=== PATIENT | female | born 1945 | race African-American/Black ===

== ENCOUNTER 2019-12-21 11:03 | Inpatient (IN) | payer MEDICARE, OTHER ==
[~2019-12-21] VITALS: Ht 162.6 cm; Wt 63.5 kg
[~2019-12-21 11:03] MED LIST: ALLOPURINOL100 M1 ORAL; APRESOLINE10 MG ORAL; ASPIRIN81 MG ORAL; BENAZEPRIL HCL10 MG ORAL; BYSTOLIC10 MG ORAL; FUROSEMIDE20 M1 ORAL; LIPITOR40 MG ORAL; LOTENSIN40 MG ORAL; NORVASC10 MG ORAL; PLAVIX75 MG ORAL
[2019-12-21 11:10] VITALS: BP 154/74
--- NOTE | 2019-12-21 11:10 | NUR ---
ED Nurse Note: Patient MANSI BARAJAS from [facility] c/o fever, cough and SOB. Per EMS, pt temp is 99.F with no improvement. Pt has mitchell prat drainage on RLQ. Temp at triage 98.2F. Not in any distress. VSS. Pt placed on child monitor.
--- NOTE | 2019-12-21 11:14 | Emergency Room Report ---
History of Present Illness General Chief Complaint: Dyspnea/Respdistress Source: Patient, EMS, PMD Present Illness HPI Disclaimer: Please note that this report is being documented using SploreON technology. This can lead to erroneous entry secondary to incorrect interpretation by the dictating instrument. HPI: 74-year-old female presents from SNF by EMS for evaluation of low-grade fever cough. Cough and low-grade fever reported. Denies shortness of breath. Denies vomiting, diarrhea, chest pain. Symptoms present about 1 day. Reports fatigue, chest congestion and mild sore throat. Denies any difficulty swallowing. Cases of novel coronavirus reported at her SNF. Sent in for admission by her PMD. PMH: Hypertension PSH: Reviewed Allergies: None reported Social Hx: Non-smoker Allergies: Coded Allergies: No Known Allergies (Unverified , 09/30/14) Nursing Documentation-PMH Hx Cardiac Problems: Yes Hx Hypertension: Yes Hx Cancer: No Hx Gastrointestinal Problems: No Hx Neurological Problems: Yes Hx Cerebrovascular Accident: Yes - 2012 Hx Syncope: Yes Review of Systems All Other Systems: negative except mentioned in HPI Physical Exam General: Awake and alert, appears fatigued but in no distress HEENT: NC/AT. EOMI. Cardiovascular: RRR. S1 and S2 normal. No murmur appreciated Resp: Normal work of breathing. Intermittent cough with coarse upper airway sounds bilaterally. No wheezing. Abdomen: Abdomen is soft, nondistended. Nontender Skin: Intact. No abrasions, laceration or rash over the exposed skin MSK: Normal tone and bulk. Moving all extremities. No obvious deformity. Neuro: Awake and alert. Mentating appropriately. Medical Decision Making Diagnostic Impression: Primary Impression: Suspected 2019 novel coronavirus infection Additional Impressions: Respiratory illness with fever UTI (urinary tract infection) ER Course This a 74-year-old female presenting for evaluation of fevers and cough of 1 day duration. Differential includes was not limited to viral syndrome, influenza, novel coronavirus, URI, pneumonia, bronchitis, empyema, effusion, CHF , ACS, GERD to name a few. Based on the patient's presenting signs, symptoms and physical exam findings, the patient has been screened and is suspected to have COVID-19. Will send influenza and novel coronavirus swabs. Cultures and broad labs ordered. Patient will require admission to isolation floor. Laboratory Tests Test 12/21/19 11:45 White Blood Count 16.4 K/UL (4.8-10.8) H Red Blood Count 4.06 M/UL (4.20-5.40) L Hemoglobin 12.6 G/DL (12.0-16.0) Hematocrit 36.9 % (37.0-47.0) L Mean Corpuscular Volume 91 FL (80-99) Mean Corpuscular Hemoglobin 31.0 PG (27.0-31.0) Mean Corpuscular Hemoglobin Concent 34.0 G/DL (32.0-36.0) Red Cell Distribution Width 12.6 % (11.6-14.8) Platelet Count 214 K/UL (150-450) Mean Platelet Volume 9.4 FL (6.5-10.1) Neutrophils (%) (Auto) 82.0 % (45.0-75.0) H Lymphocytes (%) (Auto) 5.7 % (20.0-45.0) L Monocytes (%) (Auto) 10.7 % (1.0-10.0) H Eosinophils (%) (Auto) 0.6 % (0.0-3.0) Basophils (%) (Auto) 1.0 % (0.0-2.0) Urine Color Yellow Urine Appearance Clear Urine pH 5 (4.5-8.0) Urine Specific Milo 1.020 (1.005-1.035) Urine Protein 2+ (NEGATIVE) H Urine Glucose (UA) Negative (NEGATIVE) Urine Ketones 3+ (NEGATIVE) H Urine Blood 2+ (NEGATIVE) H Urine Nitrite Negative (NEGATIVE) Urine Bilirubin Negative (NEGATIVE) Urine Urobilinogen Normal MG/DL (0.0-1.0) Urine Leukocyte Esterase 3+ (NEGATIVE) H Urine RBC 2-4 /HPF (0 - 2) H Urine WBC 15-20 /HPF (0 - 2) H Urine Squamous Epithelial Cells Few /LPF (NONE/OCC) Urine Bacteria Few /HPF (NONE) Sodium Level 138 MMOL/L (136-145) Potassium Level 4.2 MMOL/L (3.5-5.1) Chloride Level 103 MMOL/L (98-107) Carbon Dioxide Level 21 MMOL/L (21-32) Anion Gap 14 mmol/L (5-15) Blood Urea Nitrogen 10 mg/dL (7-18) Creatinine 0.5 MG/DL (0.55-1.30) L Estimated Glomerular Filtration Rate > 60 mL/min (>60) Glucose Level 78 MG/DL (74-106) Lactic Acid Level Pending Calcium Level 7.9 MG/DL (8.5-10.1) L Total Bilirubin 1.2 MG/DL (0.2-1.0) H Direct Bilirubin 0.3 MG/DL (0.0-0.3) Aspartate Amino Transferase (AST) 43 U/L (15-37) H Alanine Aminotransferase (ALT) 35 U/L (12-78) Alkaline Phosphatase 191 U/L (46-116) H Total Creatine Kinase 63 U/L (26-308) Creatine Kinase MB 3.2 NG/ML (0.0-3.6) Creatine Kinase MB Relative Index 5.0 Troponin I 0.010 ng/mL (0.000-0.056) Pro-B-Type Natriuretic Peptide 671 pg/mL (0-125) H Total Protein 5.0 G/DL (6.4-8.2) L Albumin 2.1 G/DL (3.4-5.0) L Globulin 2.9 g/dL Albumin/Globulin Ratio 0.7 (1.0-2.7) L Microbiology Date/Time Source Procedure Growth Status 12/21/19 11:45 Nasal Nares - Final Complete 12/21/19 11:45 Nasal Nares - Final Complete EKG Diagnostic Results EKG Time: 11:46 Rate: normal Rhythm: NSR ST Segments: no acute changes Other Impression Sinus rhythm, normal axis, irregular baseline makes it difficult to interpret, no obvious ischemic changes Rhythm Strip Diag. Results Rhythm Strip Time: 11:46 Rate: 70s Rhythm: NSR, no PVC's, no ectopy Chest X-Ray Diagnostic Results Chest X-Ray Diagnostic Results : Chest X-Ray Ordered: Yes # of Views/Limited/Complete: 1 View Indication: Shortness of Breath EP Interpretation: Yes Interpretation: no consolidation, no pneumothorax, other - Cannot visualize the left costovertebral angle. Possible effusion or rotational. Bilateral pulmonary congestion. No obvious infiltrate. Impression: Other - Bilateral pulmonary congestion lower lobes, possible left-sided effusion Electronically Signed by: Electronically signed by Dr. Paresh Lieberman Reevaluation Time: 12:51 Reevaluation Impression Chest x-ray shows bilateral pulmonary congestion but no obvious consolidation. Influenza swab negative. COVID-19 swab ordered. Patient will be kept in respiratory isolation during admission until swabs are returned. Urine may indicate an acute urinary tract infection. Will treat with ceftriaxone azithromycin to cover both urinary and respiratory pathogens. Will admit to her PMD, Dr. Shaffer Disposition: ADMITTED INPATIENT Condition: Serious Paresh Lieberman MD Dec 21, 2019 11:14
--- NOTE | 2019-12-21 11:15 | NUR ---
ED Nurse Note: Xray at bedside.
--- NOTE | 2019-12-21 11:20 | NUR ---
ED Nurse Note: IV line established. Blood specimen and covid swab collected and sent to lab.
[2019-12-21 12:27] LABS: EOSINOPHILS % (AUTO) 0.6 % (0.0-3.0); HEMATOCRIT 36.9 % (37.0-47.0); HEMOGLOBIN 12.6 G/DL (12.0-16.0); LYMPHOCYTES % (AUTO) 5.7 % (20.0-45.0); MEAN CORPUSCULAR VOLUME 91 FL (80-99); MONOCYTES % (AUTO) 10.7 % (1.0-10.0); PLATELET COUNT 214 K/UL (150-450); RED BLOOD COUNT 4.06 M/UL (4.20-5.40); RED CELL DISTRIBUTION WIDTH 12.6 % (11.6-14.8); WHITE BLOOD COUNT 16.4 K/UL (4.8-10.8)
--- NOTE | 2019-12-21 12:30 | NUR ---
ED Nurse Note: Urine specimen collected and sent to lab.
[2019-12-21 12:48] LABS: APPEARANCE,URINE CLEAR; BILIRUBIN, URINE NEGATIVE (NEGATIVE); GLUCOSE, URINE (UA) NEGATIVE (NEGATIVE); KETONES,URINE 3+ (NEGATIVE); LEUKOCYTE ESTERASE ,URINE 3+ (NEGATIVE); NITRITE,URINE NEGATIVE (NEGATIVE); PH,URINE 5 (4.5-8.0); PROTEIN,URINE 2+ (NEGATIVE); UROBILINOGEN,URINE NORMAL MG/DL (0.0-1.0)
[2019-12-21 12:50] LABS: ANION GAP 14 mmol/L (5-15); BLOOD UREA NITROGEN 10 mg/dL (7-18); CALCIUM 7.9 MG/DL (8.5-10.1); CARBON DIOXIDE 21 MMOL/L (21-32); CHLORIDE 103 MMOL/L (98-107); CREATININE 0.5 MG/DL (0.55-1.30); POTASSIUM 4.2 MMOL/L (3.5-5.1); SODIUM 138 MMOL/L (136-145)
[2019-12-21 13:02] LABS: ALANINE AMINOTRANSFERASE 35 U/L (12-78); ALBUMIN 2.1 G/DL (3.4-5.0); ALBUMIN/GLOBULIN RATIO 0.7 (1.0-2.7); ALKALINE PHOSPHATASE 191 U/L (46-116); ASPARTATE AMINO TRANSFERASE 43 U/L (15-37); BILIRUBIN,TOTAL 1.2 MG/DL (0.2-1.0); CKMB 3.2 NG/ML (0.0-3.6); CREATINE KINASE 63 U/L (26-308)
[2019-12-21] MEDS ORDERED: NORCO 5-325 TA1 EAC1 ORAL (13:02)
[2019-12-21] MEDS ORDERED: LISINOPRIL20 MG ORAL (13:02)
[2019-12-21] MEDS ORDERED: PANTOPRAZOLE SO40 MG ORAL (13:02)
[2019-12-21] MEDS ORDERED: DOCUSATE SODIU100 MG ORAL (13:02)
[2019-12-21 13:04] LABS: COLOR,URINE YELLOW
[2019-12-21 13:08] LABS: BILIRUBIN,DIRECT 0.3 MG/DL (0.0-0.3)
[2019-12-21] MEDS ORDERED: Azithromycin 500 MG in NS 275 ML IV ONE (13:15)
[2019-12-21] MEDS ORDERED: cefTRIAXone 1 GM in NS 55 ML IVPB ONE (13:15)
[2019-12-21 13:21] VITALS: BP 152/59
[2019-12-21 15:30] VITALS: BP 151/67
--- NOTE | 2019-12-21 15:30 | NUR ---
ED Nurse Note: Patient alert and oriented, verbally responsive. No SOB. Afebrile. Safety and comfort provided.
--- NOTE | 2019-12-21 16:08 | Diagnostic Imaging Report ---
Indication: Dyspnea Comparison: 09/30/2014 A single view chest radiograph was obtained. Findings: Pulmonary vascularity is mildly prominent as is the interstitium. There is a scoliosis of the thoracic spine with generalized osteopenia. There is a heavily calcified right breast implant and a partially ruptured calcified left breast implant. Cardiomegaly is again noted. IMPRESSION: No acute disease
[2019-12-21 17:30] VITALS: BP 145/72
[2019-12-21 19:30] VITALS: BP 161/59
--- NOTE | 2019-12-21 19:30 | Consultation ---
DATE OF CONSULTATION: 12/21/2019 INFECTIOUS DISEASES CONSULTATION CONSULTING PHYSICIAN: Darell Mckenna MD. PRIMARY ATTENDING PHYSICIAN: Tiff Shaffer MD. REASON FOR CONSULTATION: Upper respiratory infection with fever, rule out COVID 19, UTI. HISTORY OF PRESENT ILLNESS: This is a 74-year-old female admitted today from a nursing facility because of fever, fatigue, coughing for one day, and had mild sore throat. In the ER, she had leukocytosis of 16.4. Temperature per EMS was 99.7. PAST MEDICAL HISTORY: Significant for hypertension and CVA. ALLERGIES: No known drug allergy. MEDICATIONS: Got ceftriaxone and azithromycin in the ER. Got IV normal saline. SOCIAL HISTORY: assisted. . No other history was obtainable by the patient. The patient is sleeping. PHYSICAL EXAMINATION: VITAL SIGNS: Temperature 98.4, pulse 73, blood pressure 152/59. GENERAL APPEARANCE: Seems to have normal weight. No acute distress. HEAD AND NECK: Sikes conjunctivae. HEART: Normal rate. LUNGS: Clear. ABDOMEN: Soft and nontender. EXTREMITIES: She has no edema. LABORATORY AND DIAGNOSTIC DATA: WBC 16.4, hemoglobin 12.6, hematocrit 36.9. Sodium 138, potassium 5.2, chloride 103, bicarb 21, BUN 10, creatinine 0.5, glucose is 78, bilirubin 1.2, albumin is 2.1. UA showed wbc's of 15-20, leukocyte esterase 2+, blood 2+. Chest x-ray seems to have a lot of rotation. IMPRESSION: Acute respiratory illness. We will try to rule out COVID-19. Pyuria, may have UTI. History of hypertension and CVA. Leukocytosis. RECOMMENDATION: Continue with ceftriaxone. We will repeat chest x-ray in the morning. We will follow up the COVID-19 test. At the end of my exam, I thank Dr. Shaffer for involving me in the care of this patient. Darell Mckenna M.D. DR: Vladimir JOB#: [id number] CC: [id number]
--- NOTE | 2019-12-21 19:54 | NUR ---
ED Nurse Note: Patient seen sleeping in bed. Breathing even and unlabored. Safety and comfort provided.
--- NOTE | 2019-12-21 20:53 | NUR ---
ED Nurse Note: REPORT GIVEN TO DIANE ABREU
[2019-12-21 20:54] VITALS: BP 146/57
--- NOTE | 2019-12-21 21:00 | NUR ---
TRANSFER TO FLOOR: Patient transferred to Tele. Report given to Azra CONTRERAS. Pt alert and orientedx4, verbally responsive. No SOB. No acute distress. Afebrile. Sinus rhythm. IV line on left AC 20g patent and intact. Swabs are sent. Med recon done. All belongings sent with the patient.
--- NOTE | 2019-12-21 21:55 | NUR ---
NURSE NOTES: Patient received from DIANE Reed. Patient is awake, alert, and responsive. AOx4. skin intact with 3 abdominal sutures, CYRUS drain on RLQ. IV intact and flushed. No sign of erythema, bleeding, or infiltration. Patient in room air and semi-rivas's position. Bed in lowest position, brakes engaged. Call light placed within reach. Oriented to hospital protocol. Called and left a message for Dr. Shaffer for admission orders. Will continue to monitor.
--- NOTE | 2019-12-21 22:55 | NUR ---
NURSE NOTES: Called and spoke to charge nurse from [facility] clarifying patient's abdominal surgery. Nurse was unable to verify what procedure was done. Information reported to Dr. Shaffer.
[2019-12-21] MEDS ORDERED: NORVASC5 MG ORAL (23:13)
[2019-12-21] MEDS ORDERED: ZOFRAN4 M1 ORAL (23:13)
[2019-12-21] MEDS ORDERED: HYDROcodone/Acetamin 5/325 tab ORAL PRN (23:15)
--- NOTE | 2019-12-21 23:26 | NUR ---
NURSE NOTES: Called and left a message with Dr. Shaffer regarding patient's SBP at 160s. MD ordered clonidine 0.1mg po Q6H PRN for sbp > 180. Will continue to monitor.
[2019-12-22 01:18] VITALS: BP 171/77
[2019-12-22 04:00] VITALS: BP 158/75
[2019-12-22] MEDS: NovoLOG Insulin Flexpen SUBQ SCH ×4 (06:30→21:00)
--- NOTE | 2019-12-22 07:24 | NUR ---
HAND-OFF: Report given to DIANE Ahn. Patient stable. Plan of care endorsed.
--- NOTE | 2019-12-22 07:39 | NUR ---
NURSE NOTES: Received report from DIANE Petty. Observed pt sleeping, breathing even and unlabored in RA. No s/sx of pain or acute distress. Bed on lowest position, call light within reach. Will continue plan of care.
[2019-12-22 08:00] VITALS: BP 156/74
[2019-12-22] MEDS: Lisinopril 20mg tab ORAL SCH (09:23)
[2019-12-22] MEDS: Docusate 100mg cap ORAL SCH (09:23)
[2019-12-22 11:15] LABS: BASOPHILS % (AUTO) 1.2 % (0.0-2.0); EOSINOPHILS % (AUTO) 1.5 % (0.0-3.0); HEMATOCRIT 37.7 % (37.0-47.0); HEMOGLOBIN 12.7 G/DL (12.0-16.0); LYMPHOCYTES % (AUTO) 10.2 % (20.0-45.0); MEAN CORPUSCULAR VOLUME 91 FL (80-99); NEUTROPHILS % (AUTO) 76.2 % (45.0-75.0); PLATELET COUNT 215 K/UL (150-450); RED BLOOD COUNT 4.15 M/UL (4.20-5.40); RED CELL DISTRIBUTION WIDTH 12.7 % (11.6-14.8); WHITE BLOOD COUNT 11.8 K/UL (4.8-10.8)
[2019-12-22 11:47] LABS: ALANINE AMINOTRANSFERASE 27 U/L (12-78); ALBUMIN 1.8 G/DL (3.4-5.0); ALBUMIN/GLOBULIN RATIO 0.5 (1.0-2.7); ALKALINE PHOSPHATASE 168 U/L (46-116); ANION GAP 11 mmol/L (5-15); ASPARTATE AMINO TRANSFERASE 34 U/L (15-37); BILIRUBIN,TOTAL 0.6 MG/DL (0.2-1.0); BLOOD UREA NITROGEN 10 mg/dL (7-18); CALCIUM 8.2 MG/DL (8.5-10.1); CARBON DIOXIDE 20 MMOL/L (21-32); CHLORIDE 102 MMOL/L (98-107); CREATININE 0.4 MG/DL (0.55-1.30); POTASSIUM 3.9 MMOL/L (3.5-5.1); SODIUM 133 MMOL/L (136-145)
[2019-12-22 12:00] VITALS: BP 143/64
[2019-12-22] MEDS ORDERED: cefTRIAXone 1 GM in D5W 55 ML IVPB SCH (12:00)
--- NOTE | 2019-12-22 12:30 | Consultation ---
DATE OF CONSULTATION: 12/22/2019 PULMONARY CONSULTATION CONSULTING PHYSICIAN: Rodger Weems M.D. HISTORY OF PRESENT ILLNESS: This is a 74-year-old female, who [facility] with fever, fatigue and cough. She also had complaints of a sore throat, low-grade fever. She has mild leukocytosis. X-ray of the chest showed clear pulmonary parenchyma. She received antibiotics in the ER, is currently in the hospital with rule out COVID-19 protocol. PAST HISTORY: [facility] resident, hypertension, previous CVA. SOCIAL HISTORY: [facility] resident. No history of alcohol or tobacco usage. MEDICATIONS: Home medications reviewed and reconciled in the chart. Current medications include azithromycin, Rocephin, IV fluids, Norvasc, Bolton, and Prinivil. ALLERGIES: None reported. PHYSICAL EXAMINATION: VITAL SIGNS: Blood pressure is 150/70, heart rate 74, respirations ____, afebrile. GENERAL: Reveals an elderly female. HEENT: Unremarkable. CHEST: Shows decreased breath sounds bilaterally with normal heart sounds. ABDOMEN: Soft. EXTREMITIES: There is no edema. LABORATORY DATA: Sodium 133, hemoglobin 11.8. IMPRESSION: 1. Rule out COVID-19. 2. [facility] resident. 3. Hypertension. 4. CVA. DISCUSSION: Admit to the hospital. Agree with antibiotics. We will follow as pulmonary taxation consultant. We will follow carefully. Rodger Weems M.D. DR: CALIN JOB#: [id number] CC:
[2019-12-22] MEDS ORDERED: Tubing IV Secondary IV ONE (12:37)
--- NOTE | 2019-12-22 15:02 | NUR ---
NURSE NOTES: Reported NA 133, WBC 11.8, and Albumin 1.[address] Shaffer. Addendum: 12/22/19 at 1514 by Anabelle Bunch RN MD ordered dietitian consult for low albumin.
[2019-12-22 16:00] VITALS: BP 156/73
--- NOTE | 2019-12-22 17:05 | NUR ---
NURSE NOTES: Pt requested to removed SCDs and stated to put it back later. Will endorse to night nurse.
--- NOTE | 2019-12-22 19:39 | NUR ---
HAND-OFF: Report given to DIANE Mcdonnell. Pt in stable condition, endorsed plan of care.
--- NOTE | 2019-12-22 19:40 | NUR ---
NURSE NOTES: Got report from Anabelle CONTRERAS. Pt in stable condition. Denies any pain. No s/s of distress or discomfort noted. Pt resting in bed comfortably. Bed in low andl locked position, call light within reach, bedside table within reach. Continue to monitor.
[2019-12-22 20:00] VITALS: BP 160/69
--- NOTE | 2019-12-22 23:00 | NUR ---
NURSE NOTES: Pt had 20 beats wide QRS Tachycardia which appears to be VTach. Pt in stable condition. VSS. Pt denies any distress or discomfort. No distress noted. Dr. Laboy notified.
--- NOTE | 2019-12-22 23:00 | History and Physical Report ---
DATE OF ADMISSION: 12/21/2019 HISTORY OF PRESENT ILLNESS: The patient comes in with respiratory symptoms, cough, shortness of breath, and low-grade fever from the [facility], with elevated WBC. COVID swab was sent and azithromycin was given. The patient denies nausea, vomiting, or diarrhea. Symptoms going on for about 2 weeks. The patient also reports weakness, chest congestion, and sore throat. The patient has been admitted to rule out pneumonia and rule out COVID-19 as well. The patient is also being treated for being admitted for UTI as well. PAST MEDICAL HISTORY: Hypertension, history of syncope, history of CVA. The patient also has history of GERD. Hyperlipidemia and CAD. PAST SURGICAL HISTORY: Status post laparotomy in the past. SOCIAL HISTORY: No history of alcohol or drug abuse. Comes from a [facility]. FAMILY HISTORY: Noncontributory. ALLERGIES: No known allergies. MEDICATIONS: Lipitor, benazepril, Plavix, Colace, hydralazine, lisinopril, and Protonix. REVIEW OF SYSTEMS: HEENT: Denies headache. RESPIRATORY: He does have mild shortness of breath. Mild cough. Denies wheezing. CARDIOVASCULAR: Denies chest pain. No orthopnea. GASTROINTESTINAL: Denies nausea, vomiting, or diarrhea. EXTREMITIES: Denies pain in the lower extremities. Denies change in speech pattern. PHYSICAL EXAMINATION: VITAL SIGNS: Temperature 97.9, pulse 71, blood pressure 142/64. HEENT: PERRLA. NECK: Supple. No lymphadenopathy. CHEST: Clear to auscultation. CARDIOVASCULAR: Regular rate and rhythm. No murmurs or extra sounds. GASTROINTESTINAL: Soft, nontender, nondistended. No organomegaly. EXTREMITIES: No edema. Reflexes are on both sides. Moves all the extremities. LABORATORY AND DIAGNOSTIC DATA: Laboratory-lowe, WBC of 16.4, hemoglobin 12.6, platelets of 214,000. Sodium 138, potassium of 4.2, chloride of 103, BUN of 10, creatinine of 0.5, glucose of 78, AST of 43, ALT of 35. Troponin 0.01. ASSESSMENT AND PLAN: Respiratory insufficiency, pneumonia, rule out COVID-19, leukocytosis, and history of CAD. I have consulted Dr. Rodger Parker and Dr. Darell Mckenna for the management of the pneumonia. Antibiotics per Dr. Darell Mckenna. Tiff Shaffer M.D. DR: Chris JOB#: [id number] CC:
[2019-12-23] VITALS: BP 155/75
[2019-12-23 04:00] VITALS: BP 156/77
[2019-12-23] MEDS: NovoLOG Insulin Flexpen SUBQ SCH ×4 (06:30→21:00)
--- NOTE | 2019-12-23 07:26 | NUR ---
HAND-OFF: Report given to Tristan CONTRERAS.
--- NOTE | 2019-12-23 07:27 | NUR ---
NURSE NOTES: Received report from DIANE Dowell. Patient in bed resting, no active s/s cardiac, respiratory distress noticed at this time. Patient AOx4, on room air, denies pain at this time. Endorsed patient had 20 Beats of wide QRS MD Domenico made aware. IV on left AC 20G, asymptomatic, patent, intact. Bed in lowest position, side rails upx2, call light within reach, bed alarm on. Will continue to monitor.
[2019-12-23 08:00] VITALS: BP 150/73
[2019-12-23] MEDS: Docusate 100mg cap ORAL SCH (08:33)
[2019-12-23] MEDS: Lisinopril 20mg tab ORAL SCH (08:46)
[2019-12-23 09:31] LABS: ALANINE AMINOTRANSFERASE 29 U/L (12-78); ALBUMIN 1.9 G/DL (3.4-5.0); ALBUMIN/GLOBULIN RATIO 0.7 (1.0-2.7); ALKALINE PHOSPHATASE 166 U/L (46-116); ANION GAP 11 mmol/L (5-15); ASPARTATE AMINO TRANSFERASE 30 U/L (15-37); BILIRUBIN,TOTAL 0.5 MG/DL (0.2-1.0); BLOOD UREA NITROGEN 9 mg/dL (7-18); CARBON DIOXIDE 24 MMOL/L (21-32); CHLORIDE 102 MMOL/L (98-107); CREATININE 0.3 MG/DL (0.55-1.30); POTASSIUM 4.2 MMOL/L (3.5-5.1); SODIUM 136 MMOL/L (136-145)
[2019-12-23] MEDS: Cefepime HCl 1 GM in D5W 55 ML IVPB SCH (11:24)
--- NOTE | 2019-12-23 11:38 | Pulmonology Progress Note ---
Assessment/Plan Assessment/Plan IMPRESSION: 1. Rule out COVID-19. 2. long term resident. 3. Hypertension. 4. CVA. 5. Citrobacter UTI DISCUSSION: Admit to the hospital. Agree with antibiotics. I will follow as pulmonary independent crop consultant. Continue to monitor saturations; currently on RA. Rodger Weems M.D. Subjective Interval Events: Urine CS positive for citrobacter Constitutional: Reports: no symptoms HEENT: Repors: no symptoms Respiratory: Reports: no symptoms Cardiovascular: Reports: no symptoms Gastrointestinal/Abdominal: Reports: no symptoms Allergies: Coded Allergies: No Known Allergies (Unverified , 09/30/14) Objective Last 24 Hour Vital Signs Date Time Temp Pulse Resp B/P (MAP) Pulse Ox O2 Delivery O2 Flow Rate FiO2 12/23/19 09:00 Room Air 12/23/19 08:46 150/75 12/23/19 08:46 73 150/75 12/23/19 08:00 72 12/23/19 08:00 98.3 75 18 150/73 (98) 95 12/23/19 04:00 97.5 70 20 156/77 (103) 96 12/23/19 04:00 70 12/23/19 00:00 97.9 75 20 155/75 (101) 95 12/23/19 00:00 73 12/22/19 21:00 Room Air 12/22/19 20:00 98.2 80 20 160/69 (99) 95 12/22/19 20:00 79 12/22/19 17:51 80 156/73 12/22/19 16:00 68 12/22/19 16:00 98.1 80 20 156/73 (100) 94 12/22/19 12:00 97.9 71 20 143/64 (90) 100 12/22/19 11:39 73 Intake and Output 12/22/19 12/23/19 19:00 07:00 Output Total 700 ml Balance -700 ml Output Urine Total 600 ml Drainage Total 100 ml General Appearance: no acute distress HEENT: normocephalic Respiratory/Chest: chest wall non-tender Cardiovascular: normal peripheral pulses Abdomen: normal bowel sounds Microbiology Date/Time Source Procedure Growth Status 12/21/19 12:00 Blood Blood Culture - Preliminary NO GROWTH AFTER 24 HOURS Resulted 12/21/19 11:45 Blood Blood Culture - Preliminary NO GROWTH AFTER 24 HOURS Resulted 12/21/19 11:45 Nasal Nares - Final Complete 12/21/19 11:45 Nasal Nares - Final Complete 12/21/19 11:45 Urine,Clean Catch Urine Culture - Final Citrobacter Freundii Complete Laboratory Tests 12/23/19 05:45: Sodium Level 136, Potassium Level 4.2, Chloride Level 102, Carbon Dioxide Level 24, Anion Gap 11, Blood Urea Nitrogen 9, Creatinine 0.3L, Estimat Glomerular Filtration Rate > 60, Glucose Level 77, Calcium Level 8.0L, Magnesium Level 1.6L , Total Bilirubin 0.5, Aspartate Amino Transf (AST/SGOT) 30, Alanine Aminotransferase (ALT/SGPT) 29, Alkaline Phosphatase 166H, Troponin I 0.000, Total Protein 4.6L, Albumin 1.9L, Globulin 2.7, Albumin/Globulin Ratio 0.7L Current Medications Medications (Trade) Dose Ordered Sig/Lynette Route PRN Reason Start Time Stop Time Status Last Admin Dose Admin Acetaminophen/ Hydrocodone Bitart (Etna 5/325) 1 tab Q4H PRN ORAL For Pain 12/21/19 23:15 12/28/19 23:14 Amlodipine Besylate (Norvasc) 5 mg BID ORAL 12/22/19 09:00 01/21/20 08:59 12/23/19 08:46 Cefepime HCl 1 gm/ Dextrose 55 ml @ 110 mls/hr Q24H IVPB 12/23/19 11:00 12/30/19 10:59 12/23/19 11:24 Clonidine HCl (Catapres Tab) 0.1 mg Q6H PRN ORAL For High Blood Pressure 12/22/19 00:45 03/21/20 00:44 12/22/19 01:19 Dextrose (Dextrose 50%) 25 ml Q30M PRN IV Hypoglycemia 12/22/19 06:00 03/21/20 05:59 Dextrose (Dextrose 50%) 50 ml Q30M PRN IV Hypoglycemia 12/22/19 06:00 03/21/20 05:59 Docusate Sodium (Colace) 200 mg DAILY ORAL 12/22/19 09:00 01/21/20 08:59 12/23/19 08:33 Insulin Aspart (NovoLOG) BEFORE MEALS AND HS SUBQ 12/22/19 06:30 03/21/20 06:29 Lisinopril (PriniviL) 20 mg DAILY ORAL 12/22/19 09:00 01/21/20 08:59 12/23/19 08:46 Ondansetron HCl (Zofran) 4 mg Q4H PRN ORAL Nausea & Vomiting 12/21/19 23:15 01/20/20 23:14 Rodger Weems MD Dec 23, 2019 11:38
--- NOTE | 2019-12-23 11:56 | NUR ---
RD ASSESSMENT & RECOMMENDATIONS SEE CARE ACTIVITY FOR COMPLETE ASSESSMENT DAILY ESTIMATED NEEDS: Needs based on cardiac, pulmonary 56.8abw 25-30 kcals/kg 6239-0286 total kcals 1-1.5 g protein/kg 57-85 g total protein 25-30 mL/kg 3335-1742 total fluid mLs NUTRITION DIAGNOSIS: Altered nutrition related lab values r/t clinical status as evidenced by low Mg, elev LFT's, elev BP. CURRENT DIET: CCHO MED PO DIET RECOMMENDATIONS: Rec CCHO LOW + Low NA diet/ texture as tolerated ADDITIONAL RECOMMENDATIONS: 1) add Glucerna 1 tetra BID 2) Rec A1C for eval 3) Obtain a calibrated bed scale wt for accurate CBW 4) High pro snacks in b/w meals Please record accurate PO intake of meals
[2019-12-23 12:00] VITALS: BP 148/70
--- NOTE | 2019-12-23 14:00 | NUR ---
NURSE NOTES: Dr. Laboy made aware of Mg level 1.6 today, no new order at this time. Will continue to monitor.
--- NOTE | 2019-12-23 15:23 | Infectious Diseases Prog Note ---
Assessment/Plan Assessment/Plan IMPRESSION: Acute respiratory illness, rule out COVID-19. Citrobacter UTI. Hypertension History of CVA. Leukocytosis improving RECOMMENDATION: Continue with cefepime We will follow up the COVID-19 test. Subjective ROS Limited/Unobtainable: No Constitutional: Reports: no symptoms Respiratory: Reports: no symptoms Gastrointestinal/Abdominal: Reports: no symptoms Genitourinary: Reports: no symptoms Allergies: Coded Allergies: No Known Allergies (Unverified , 09/30/14) Objective Vital Signs Last 24 Hour Vital Signs Date Time Temp Pulse Resp B/P (MAP) Pulse Ox O2 Delivery O2 Flow Rate FiO2 12/23/19 12:00 75 12/23/19 12:00 97.8 75 18 148/70 (96) 95 12/23/19 09:00 Room Air 12/23/19 08:46 150/75 12/23/19 08:46 73 150/75 12/23/19 08:00 72 12/23/19 08:00 98.3 75 18 150/73 (98) 95 12/23/19 04:00 97.5 70 20 156/77 (103) 96 12/23/19 04:00 70 12/23/19 00:00 97.9 75 20 155/75 (101) 95 12/23/19 00:00 73 12/22/19 21:00 Room Air 12/22/19 20:00 98.2 80 20 160/69 (99) 95 12/22/19 20:00 79 12/22/19 17:51 80 156/73 12/22/19 16:00 68 12/22/19 16:00 98.1 80 20 156/73 (100) 94 Height (Feet): 5 Height (Inches): 4.00 Weight (Pounds): 140 General Appearance: no acute distress HEENT: mucous membranes moist Respiratory/Chest: lungs clear Cardiovascular: normal rate Abdomen: soft, non tender Extremities: no edema Neurologic/Psychiatric: alert, oriented x 3, responsive Microbiology Date/Time Source Procedure Growth Status 12/21/19 12:00 Blood Blood Culture - Preliminary NO GROWTH AFTER 24 HOURS Resulted 12/21/19 11:45 Blood Blood Culture - Preliminary NO GROWTH AFTER 24 HOURS Resulted 12/21/19 11:45 Nasal Nares - Final Complete 12/21/19 11:45 Nasal Nares - Final Complete 12/21/19 11:45 Urine,Clean Catch Urine Culture - Final Citrobacter Freundii Complete Laboratory Tests Test 12/23/19 05:45 Sodium Level 136 MMOL/L (136-145) Potassium Level 4.2 MMOL/L (3.5-5.1) Chloride Level 102 MMOL/L (98-107) Carbon Dioxide Level 24 MMOL/L (21-32) Anion Gap 11 mmol/L (5-15) Blood Urea Nitrogen 9 mg/dL (7-18) Creatinine 0.3 MG/DL (0.55-1.30) L Estimat Glomerular Filtration Rate > 60 mL/min (>60) Glucose Level 77 MG/DL (74-106) Calcium Level 8.0 MG/DL (8.5-10.1) L Magnesium Level 1.6 MG/DL (1.8-2.4) L Total Bilirubin 0.5 MG/DL (0.2-1.0) Aspartate Amino Transf (AST/SGOT) 30 U/L (15-37) Alanine Aminotransferase (ALT/SGPT) 29 U/L (12-78) Alkaline Phosphatase 166 U/L (46-116) H Troponin I 0.000 ng/mL (0.000-0.056) Total Protein 4.6 G/DL (6.4-8.2) L Albumin 1.9 G/DL (3.4-5.0) L Globulin 2.7 g/dL Albumin/Globulin Ratio 0.7 (1.0-2.7) L Current Medications Medications (Trade) Dose Ordered Sig/Lynette Route PRN Reason Start Time Stop Time Status Last Admin Dose Admin Acetaminophen/ Hydrocodone Bitart ([place] 5/325) 1 tab Q4H PRN ORAL For Pain 12/21/19 23:15 12/28/19 23:14 Amlodipine Besylate (Norvasc) 5 mg BID ORAL 12/22/19 09:00 01/21/20 08:59 12/23/19 08:46 Cefepime HCl 1 gm/ Dextrose 55 ml @ 110 mls/hr Q24H IVPB 12/23/19 11:00 12/30/19 10:59 12/23/19 11:24 Clonidine HCl (Catapres Tab) 0.1 mg Q6H PRN ORAL For High Blood Pressure 12/22/19 00:45 03/21/20 00:44 12/22/19 01:19 Dextrose (Dextrose 50%) 25 ml Q30M PRN IV Hypoglycemia 12/22/19 06:00 03/21/20 05:59 Dextrose (Dextrose 50%) 50 ml Q30M PRN IV Hypoglycemia 12/22/19 06:00 03/21/20 05:59 Docusate Sodium (Colace) 200 mg DAILY ORAL 12/22/19 09:00 01/21/20 08:59 12/23/19 08:33 Insulin Aspart (NovoLOG) BEFORE MEALS AND HS SUBQ 12/22/19 06:30 03/21/20 06:29 Lisinopril (PriniviL) 20 mg DAILY ORAL 12/22/19 09:00 01/21/20 08:59 12/23/19 08:46 Ondansetron HCl (Zofran) 4 mg Q4H PRN ORAL Nausea & Vomiting 12/21/19 23:15 01/20/20 23:14 Darell Mckenna MD Dec 23, 2019 15:23
[2019-12-23 16:00] VITALS: BP 159/68
--- NOTE | 2019-12-23 16:40 | Cardiac Electrophysiology PN ---
Subjective Subjective [id number] Objective Last 24 Hour Vital Signs Date Time Temp Pulse Resp B/P (MAP) Pulse Ox O2 Delivery O2 Flow Rate FiO2 12/23/19 16:00 98.8 79 18 159/68 (98) 94 12/23/19 16:00 73 12/23/19 12:00 75 12/23/19 12:00 97.8 75 18 148/70 (96) 95 12/23/19 09:00 Room Air 12/23/19 08:46 150/75 12/23/19 08:46 73 150/75 12/23/19 08:00 72 12/23/19 08:00 98.3 75 18 150/73 (98) 95 12/23/19 04:00 97.5 70 20 156/77 (103) 96 12/23/19 04:00 70 12/23/19 00:00 97.9 75 20 155/75 (101) 95 12/23/19 00:00 73 12/22/19 21:00 Room Air 12/22/19 20:00 98.2 80 20 160/69 (99) 95 12/22/19 20:00 79 12/22/19 17:51 80 156/73 Intake and Output 12/22/19 12/23/19 19:00 07:00 Output Total 700 ml Balance -700 ml Output Urine Total 600 ml Drainage Total 100 ml Laboratory Tests Test 12/23/19 05:45 Sodium Level 136 MMOL/L (136-145) Potassium Level 4.2 MMOL/L (3.5-5.1) Chloride Level 102 MMOL/L (98-107) Carbon Dioxide Level 24 MMOL/L (21-32) Anion Gap 11 mmol/L (5-15) Blood Urea Nitrogen 9 mg/dL (7-18) Creatinine 0.3 MG/DL (0.55-1.30) L Estimat Glomerular Filtration Rate > 60 mL/min (>60) Glucose Level 77 MG/DL (74-106) Calcium Level 8.0 MG/DL (8.5-10.1) L Magnesium Level 1.6 MG/DL (1.8-2.4) L Total Bilirubin 0.5 MG/DL (0.2-1.0) Aspartate Amino Transf (AST/SGOT) 30 U/L (15-37) Alanine Aminotransferase (ALT/SGPT) 29 U/L (12-78) Alkaline Phosphatase 166 U/L (46-116) H Troponin I 0.000 ng/mL (0.000-0.056) Total Protein 4.6 G/DL (6.4-8.2) L Albumin 1.9 G/DL (3.4-5.0) L Globulin 2.7 g/dL Albumin/Globulin Ratio 0.7 (1.0-2.7) L Microbiology Date/Time Source Procedure Growth Status 12/21/19 12:00 Blood Blood Culture - Preliminary NO GROWTH AFTER 24 HOURS Resulted 12/21/19 11:45 Blood Blood Culture - Preliminary NO GROWTH AFTER 24 HOURS Resulted 12/21/19 11:45 Nasal Nares - Final Complete 12/21/19 11:45 Nasal Nares - Final Complete 12/21/19 11:45 Urine,Clean Catch Urine Culture - Final Citrobacter Freundii Complete Vance Laboy MD Dec 23, 2019 16:40
[2019-12-23] MEDS: Magnesium Oxide 400mg tab ORAL SCH (17:42)
--- NOTE | 2019-12-23 19:38 | NUR ---
HAND-OFF: Report given to DIANE Caldwell. Endorsed plan of care.
--- NOTE | 2019-12-23 19:40 | NUR ---
NURSE NOTES: Received report from Tristan Dexter RN. Pt in stable condition, will continue close monitoring and plan of care.
[2019-12-23 20:00] VITALS: BP 157/66
--- NOTE | 2019-12-23 20:45 | Consultation ---
DATE OF CONSULTATION: 12/23/2019 CARDIOLOGY CONSULTATION CONSULTING PHYSICIAN: Vance Laboy MD. REFERRING PHYSICIAN: Tiff Shaffer MD. REASON FOR CONSULTATION: Shortness of breath. HISTORY OF PRESENT ILLNESS: The patient is a 74-year-old lady who came to the emergency room complaining of shortness of breath, cough, and low-grade fever from alf, with elevated white count. The patient was started on azithromycin after COVID swab was sent. The patient denies having nausea, vomiting, or diarrhea. The patient states this has been going on for about 2 weeks. The patient also had some weakness and shortness of breath. The patient also was found to have urinary tract infection, was admitted, and Cardiology consultation was obtained for further evaluation. Reportedly, the patient also had runs of nonsustained ventricular tachycardia on telemetry. REVIEW OF SYSTEMS: Negative other than what was mentioned in history of present illness. PAST MEDICAL HISTORY: As mentioned above. FAMILY HISTORY: Noncontributory. PAST SURGICAL HISTORY: History of laparotomy in the past. MEDICATIONS: Per reconciliation. ALLERGIES: No known drug allergies. SOCIAL HISTORY: She is a alf resident. Does not smoke or drink alcohol. PHYSICAL EXAMINATION: VITAL SIGNS: Blood pressure of 159/68, pulse 79, respirations 18, and she is afebrile. HEAD AND NECK: Showed no JVD or carotid bruits. LUNGS: Clear. CARDIOVASCULAR: Regular S1 and S2 with no gallop or murmur. ABDOMEN: Soft. EXTREMITIES: No pitting edema. LABORATORY AND DIAGNOSTIC DATA: EKG showed normal sinus rhythm and there was poor progression. Telemetry strip showed short runs of nonsustained ventricular tachycardia at 110-140 beats per minute. Labs show white count of 11.8, hemoglobin 12.7, hematocrit 37.7, and platelet count of 215,000. Sodium 133, potassium 4.2, BUN of 9, creatinine of 0.3, and glucose 77. Troponin negative x2. ASSESSMENT AND PLAN: 1. Nonsustained ventricular tachycardia. The patient already ruled out for myocardial infarction. Currently, she does not have any chest pain. We will get an echocardiogram for further evaluation. 2. Hypertension, on lisinopril 20 mg daily and amlodipine 5 mg b.i.d. 3. Diabetes, on insulin. 4. Acute respiratory illness, rule out COVID-19. Labs pending. 5. Citrobacter UTI. 6. History of CVA. Thank you very much, Dr. Shaffer, for allowing me to participate in the care of this patient. Please do not hesitate to contact me for any questions regarding my evaluation. Vance Laboy M.D. DR: Marion JOB#: [id number] CC:
--- NOTE | 2019-12-23 20:55 | General Progress Note ---
Assessment/Plan Problem List: (1) UTI (urinary tract infection) ICD Codes: N39.0 - Urinary tract infection, site not specified SNOMED: 94448027 (2) Respiratory illness with fever ICD Codes: J98.9 - Respiratory disorder, unspecified; R50.9 - Fever, unspecified SNOMED: 68546846, 185796205 (3) Suspected 2019 novel coronavirus infection ICD Codes: R68.89 - Other general symptoms and signs SNOMED: 619237505 (4) Respiratory illness ICD Codes: J98.9 - Respiratory disorder, unspecified SNOMED: 15852127 Status: progressing Assessment/Plan: pna r/p covid NSVT CONSULTED DR BENIGNO alfonso per id afebrile Subjective ROS Limited/Unobtainable: Yes Allergies: Coded Allergies: No Known Allergies (Unverified , 09/30/14) Objective Last 24 Hour Vital Signs Date Time Temp Pulse Resp B/P (MAP) Pulse Ox O2 Delivery O2 Flow Rate FiO2 12/23/19 17:42 73 159/68 12/23/19 16:00 98.8 79 18 159/68 (98) 94 12/23/19 16:00 73 12/23/19 12:00 75 12/23/19 12:00 97.8 75 18 148/70 (96) 95 12/23/19 09:00 Room Air 12/23/19 08:46 150/75 12/23/19 08:46 73 150/75 12/23/19 08:00 72 12/23/19 08:00 98.3 75 18 150/73 (98) 95 12/23/19 04:00 97.5 70 20 156/77 (103) 96 12/23/19 04:00 70 12/23/19 00:00 97.9 75 20 155/75 (101) 95 12/23/19 00:00 73 12/22/19 21:00 Room Air Intake and Output 12/22/19 12/23/19 19:00 07:00 Output Total 700 ml Balance -700 ml Output Urine Total 600 ml Drainage Total 100 ml Laboratory Tests 12/23/19 05:45: Sodium Level 136, Potassium Level 4.2, Chloride Level 102, Carbon Dioxide Level 24, Anion Gap 11, Blood Urea Nitrogen 9, Creatinine 0.3L, Estimat Glomerular Filtration Rate > 60, Glucose Level 77, Calcium Level 8.0L, Magnesium Level 1.6L , Total Bilirubin 0.5, Aspartate Amino Transf (AST/SGOT) 30, Alanine Aminotransferase (ALT/SGPT) 29, Alkaline Phosphatase 166H, Troponin I 0.000, Total Protein 4.6L, Albumin 1.9L, Globulin 2.7, Albumin/Globulin Ratio 0.7L Height (Feet): 5 Height (Inches): 4.00 Weight (Pounds): 140 Tiff Shaffer MD Dec 23, 2019 20:55
[2019-12-24] VITALS (7 sets, daily range): BP systolic 152–165; BP diastolic 62–77
[2019-12-24] MEDS: NovoLOG Insulin Flexpen SUBQ SCH ×4 (06:30→21:00)
--- NOTE | 2019-12-24 07:40 | NUR ---
HAND-OFF: Report given to Shira Huff RN. Pt in stable condition. Endorsed plan of care.
--- NOTE | 2019-12-24 08:00 | NUR ---
NURSE NOTES: REPORTED NEGATIVE COVID RESULT TO DR. Refugio GARCIA. BYRON TO REMOVE ISOLATION.
[2019-12-24] MEDS: Magnesium Oxide 400mg tab ORAL SCH ×2 (09:40→17:16)
[2019-12-24] MEDS: Docusate 100mg cap ORAL SCH (09:41)
[2019-12-24] MEDS: Lisinopril 20mg tab ORAL SCH (09:41)
--- NOTE | 2019-12-24 10:35 | Pulmonology Progress Note ---
Assessment/Plan Assessment/Plan IMPRESSION: 1. Ruled out COVID-19. 2. residential resident. 3. Hypertension. 4. CVA. 5. Citrobacter UTI DISCUSSION: Admit to the hospital. Agree with antibiotics. I will follow as pulmonary cancer program consultant. Continue to monitor saturations; currently on RA. COVID 19 negative Rodger Weems M.D. Subjective Interval Events: None new Constitutional: Reports: no symptoms HEENT: Repors: no symptoms Respiratory: Reports: no symptoms Cardiovascular: Reports: no symptoms Gastrointestinal/Abdominal: Reports: no symptoms Allergies: Coded Allergies: No Known Allergies (Unverified , 09/30/14) Objective Last 24 Hour Vital Signs Date Time Temp Pulse Resp B/P (MAP) Pulse Ox O2 Delivery O2 Flow Rate FiO2 12/24/19 09:41 155/77 12/24/19 09:41 77 155/77 12/24/19 09:00 Room Air 12/24/19 08:00 74 12/24/19 08:00 97.7 77 20 155/77 (103) 96 12/24/19 04:00 72 12/24/19 04:00 98.0 74 20 158/67 (97) 95 12/24/19 00:00 77 12/24/19 00:00 97.2 80 20 152/64 (93) 95 12/23/19 21:00 Room Air 12/23/19 20:00 96.8 81 18 157/66 (96) 96 12/23/19 20:00 80 12/23/19 17:42 73 159/68 12/23/19 16:00 98.8 79 18 159/68 (98) 94 12/23/19 16:00 73 12/23/19 12:00 75 12/23/19 12:00 97.8 75 18 148/70 (96) 95 Intake and Output 12/23/19 12/24/19 19:00 07:00 Intake Total 240 ml 140 ml Balance 240 ml 140 ml Intake Oral 240 ml 140 ml # Voids 2 General Appearance: no acute distress HEENT: normocephalic Respiratory/Chest: chest wall non-tender Cardiovascular: normal peripheral pulses Abdomen: normal bowel sounds Microbiology Date/Time Source Procedure Growth Status 12/21/19 12:00 Blood Blood Culture - Preliminary NO GROWTH AFTER 48 HOURS Resulted 12/21/19 11:45 Blood Blood Culture - Preliminary NO GROWTH AFTER 48 HOURS Resulted 12/21/19 11:45 Nasopharynx Coronavirus COVID-19 PCR (GRIFFIN) - Final Complete 12/21/19 11:45 Nasal Nares - Final Complete 12/21/19 11:45 Nasal Nares - Final Complete 12/21/19 11:45 Urine,Clean Catch Urine Culture - Final Citrobacter Freundii Complete Current Medications Medications (Trade) Dose Ordered Sig/Lynette Route PRN Reason Start Time Stop Time Status Last Admin Dose Admin Acetaminophen/ Hydrocodone Bitart ([place] 5/325) 1 tab Q4H PRN ORAL For Pain 12/21/19 23:15 12/28/19 23:14 Amlodipine Besylate (Norvasc) 5 mg BID ORAL 12/22/19 09:00 01/21/20 08:59 12/24/19 09:41 Cefepime HCl 1 gm/ Dextrose 55 ml @ 110 mls/hr Q24H IVPB 12/23/19 11:00 12/30/19 10:59 12/23/19 11:24 Clonidine HCl (Catapres Tab) 0.1 mg EVERY 2 HOURS PRN ORAL For High Blood Pressure 12/23/19 17:00 03/21/20 00:44 Dextrose (Dextrose 50%) 25 ml Q30M PRN IV Hypoglycemia 12/22/19 06:00 03/21/20 05:59 Dextrose (Dextrose 50%) 50 ml Q30M PRN IV Hypoglycemia 12/22/19 06:00 03/21/20 05:59 Docusate Sodium (Colace) 200 mg DAILY ORAL 12/22/19 09:00 01/21/20 08:59 12/24/19 09:41 Insulin Aspart (NovoLOG) BEFORE MEALS AND HS SUBQ 12/22/19 06:30 03/21/20 06:29 Lisinopril (PriniviL) 20 mg DAILY ORAL 12/22/19 09:00 01/21/20 08:59 12/24/19 09:41 Magnesium Oxide (Mag-Ox 400mg) 400 mg BID ORAL 12/23/19 18:00 01/22/20 17:59 12/24/19 09:40 Ondansetron HCl (Zofran) 4 mg Q4H PRN ORAL Nausea & Vomiting 12/21/19 23:15 01/20/20 23:14 Rodger Weems MD Dec 24, 2019 10:35
--- NOTE | 2019-12-24 10:43 | NUR ---
NURSE NOTES: PATIENT STABLE, AOX4. NO COMPLAINTS. NO S/SX OF DISTRESS. RR EVEN AND UNLABORED ON RA. SIDE RAILS UPX2, CALL LIGHT WITHIN REACH, BED LOW AND LOCKED. WILL CONTINUE TO MONITOR.
[2019-12-24] MEDS: Cefepime HCl 1 GM in D5W 55 ML IVPB SCH (11:10)
--- NOTE | 2019-12-24 12:07 | NUR ---
CASE MANAGEMENT:REVIEW 74 YR OLD FEMALE BIBA ROM CV EAST CC: FEVER. SOB PMH: RLQ CYRUS DRAIN SI: SUSPECTED COVID 19. UTI. URI. NSVT 98.2 74 20 154/74 95% ON RA WBC+16.4 IS: 1L NS BOLUS URINE CX BLOOD CX CHEST XRAY : TO TELEMETRY 12/24/19 SI: CITROBACTER UTI. NSVT COVID 19 NEGATIVE 97.7 77 20 155/77 96% ON RA IS: IV CEFEPIME Q24 MAG OXIDE PO BID NORVASC PO BID LISINOPRIL PO QD : TELEMETRY DCP: FROM [facility]
--- NOTE | 2019-12-24 12:30 | Cardiac Electrophysiology PN ---
Assessment/Plan Assessment/Plan 1. Nonsustained ventricular tachycardia. The patient already ruled out for myocardial infarction. Currently, she does not have any chest pain. Echocardiogram pending today. Add Lopressor 25 bid 2. Hypertension, despite on lisinopril 20 mg daily and amlodipine 5 mg b.i.d. Add Lopressor 25 bid 3. Diabetes, on insulin. 4. Acute respiratory illness, ruled out for COVID-19. 5. Citrobacter UTI. 6. History of CVA. ANABELA RN Subjective Subjective Covid results came back negative. In SR on iv Abx for PNA.No further VT Objective Last 24 Hour Vital Signs Date Time Temp Pulse Resp B/P (MAP) Pulse Ox O2 Delivery O2 Flow Rate FiO2 12/24/19 09:41 155/77 12/24/19 09:41 77 155/77 12/24/19 09:00 Room Air 12/24/19 08:00 74 12/24/19 08:00 97.7 77 20 155/77 (103) 96 12/24/19 04:00 72 12/24/19 04:00 98.0 74 20 158/67 (97) 95 12/24/19 00:00 77 12/24/19 00:00 97.2 80 20 152/64 (93) 95 12/23/19 21:00 Room Air 12/23/19 20:00 96.8 81 18 157/66 (96) 96 12/23/19 20:00 80 12/23/19 17:42 73 159/68 12/23/19 16:00 98.8 79 18 159/68 (98) 94 12/23/19 16:00 73 Intake and Output 12/23/19 12/24/19 19:00 07:00 Intake Total 240 ml 140 ml Balance 240 ml 140 ml Intake Oral 240 ml 140 ml # Voids 2 Objective HEAD AND NECK: No JVD or carotid bruits. LUNGS: Clear. CARDIOVASCULAR: Regular S1 and S2 with no gallop or murmur. ABDOMEN: Soft. EXTREMITIES: No pitting edema. Vance Laboy MD Dec 24, 2019 12:30
--- NOTE | 2019-12-24 13:26 | Infectious Diseases Prog Note ---
Assessment/Plan Assessment/Plan IMPRESSION: Acute respiratory illness, rule out COVID-19. Citrobacter UTI. Hypertension History of CVA. Leukocytosis improving RECOMMENDATION: Continue with cefepime COVID-19 test: negative Subjective ROS Limited/Unobtainable: No Constitutional: Reports: no symptoms Respiratory: Reports: productive cough Gastrointestinal/Abdominal: Reports: no symptoms Genitourinary: Reports: no symptoms Allergies: Coded Allergies: No Known Allergies (Unverified , 09/30/14) Objective Vital Signs Last 24 Hour Vital Signs Date Time Temp Pulse Resp B/P (MAP) Pulse Ox O2 Delivery O2 Flow Rate FiO2 12/24/19 09:41 155/77 12/24/19 09:41 77 155/77 12/24/19 09:00 Room Air 12/24/19 08:00 74 12/24/19 08:00 97.7 77 20 155/77 (103) 96 12/24/19 04:00 72 12/24/19 04:00 98.0 74 20 158/67 (97) 95 12/24/19 00:00 77 12/24/19 00:00 97.2 80 20 152/64 (93) 95 12/23/19 21:00 Room Air 12/23/19 20:00 96.8 81 18 157/66 (96) 96 12/23/19 20:00 80 12/23/19 17:42 73 159/68 12/23/19 16:00 98.8 79 18 159/68 (98) 94 12/23/19 16:00 73 Height (Feet): 5 Height (Inches): 4.00 Weight (Pounds): 140 General Appearance: no acute distress HEENT: mucous membranes moist Respiratory/Chest: lungs clear Cardiovascular: normal rate Abdomen: soft, non tender Extremities: no edema Neurologic/Psychiatric: alert, oriented x 3, responsive Current Medications Medications (Trade) Dose Ordered Sig/Lynette Route PRN Reason Start Time Stop Time Status Last Admin Dose Admin Acetaminophen/ Hydrocodone Bitart ([place] 5/325) 1 tab Q4H PRN ORAL For Pain 12/21/19 23:15 12/28/19 23:14 Amlodipine Besylate (Norvasc) 5 mg BID ORAL 12/22/19 09:00 01/21/20 08:59 12/24/19 09:41 Cefepime HCl 1 gm/ Dextrose 55 ml @ 110 mls/hr Q24H IVPB 12/23/19 11:00 12/30/19 10:59 12/24/19 11:10 Clonidine HCl (Catapres Tab) 0.1 mg EVERY 2 HOURS PRN ORAL For High Blood Pressure 12/23/19 17:00 03/21/20 00:44 Dextrose (Dextrose 50%) 25 ml Q30M PRN IV Hypoglycemia 12/22/19 06:00 03/21/20 05:59 Dextrose (Dextrose 50%) 50 ml Q30M PRN IV Hypoglycemia 12/22/19 06:00 03/21/20 05:59 Docusate Sodium (Colace) 200 mg DAILY ORAL 12/22/19 09:00 01/21/20 08:59 12/24/19 09:41 Insulin Aspart (NovoLOG) BEFORE MEALS AND HS SUBQ 12/22/19 06:30 03/21/20 06:29 Lisinopril (PriniviL) 20 mg DAILY ORAL 12/22/19 09:00 01/21/20 08:59 12/24/19 09:41 Magnesium Oxide (Mag-Ox 400mg) 400 mg BID ORAL 12/23/19 18:00 01/22/20 17:59 12/24/19 09:40 Metoprolol Tartrate (Lopressor) 25 mg Q12HR ORAL 12/24/19 21:00 03/23/20 20:59 Ondansetron HCl (Zofran) 4 mg Q4H PRN ORAL Nausea & Vomiting 12/21/19 23:15 01/20/20 23:14 Darell Mckenna MD Dec 24, 2019 13:26
--- NOTE | 2019-12-24 14:45 | NUR ---
HAND-OFF: Report given to Tye Clark RN. Patient stable. Endorsed that new sacral wound was found found and LT heel appeared a bit boggy. Waiting for wound care nurse assessment.
--- NOTE | 2019-12-24 19:45 | NUR ---
NURSE NOTES: Pt is alert and oriented on room air, lying in semi fowlers position. Bed is locked in lowest position with side railsx2, bed alarm on. Pt has a dressing in right upper quadrant from cholecystectomy performed approximately 1 week ago (per pt) at another hospital. CYRUS drain present RQ,dressing intact,dry, with small amount of dried drainage, CYRUS has very minimal drainage -serous-serosanguineous, stitches on abdominal area, no dehiscence. Left inner thigh redness and irritation from moisture associated skin breakdown. Sacral MASD, R heel dti, L heel boggy. Optifoam and barrier applied on sacral, optifoam on heels, wound care protocol initiated.
--- NOTE | 2019-12-24 21:17 | General Progress Note ---
Assessment/Plan Problem List: (1) UTI (urinary tract infection) ICD Codes: N39.0 - Urinary tract infection, site not specified SNOMED: 91866640 (2) Respiratory illness with fever ICD Codes: J98.9 - Respiratory disorder, unspecified; R50.9 - Fever, unspecified SNOMED: 20845568, 983196603 (3) Suspected 2019 novel coronavirus infection ICD Codes: R68.89 - Other general symptoms and signs SNOMED: 911007446 (4) Respiratory illness ICD Codes: J98.9 - Respiratory disorder, unspecified SNOMED: 11252186 Status: progressing Assessment/Plan: uti afebrile htn NSVT H/O cva niddm leukocytosis is improving reviewed chart and labs Subjective ROS Limited/Unobtainable: Yes Allergies: Coded Allergies: No Known Allergies (Unverified , 09/30/14) Objective Last 24 Hour Vital Signs Date Time Temp Pulse Resp B/P (MAP) Pulse Ox O2 Delivery O2 Flow Rate FiO2 12/24/19 20:23 Room Air Room Air 12/24/19 17:16 86 165/70 12/24/19 16:00 75 12/24/19 16:00 98.3 86 18 165/70 (101) 96 12/24/19 12:00 98.3 76 18 162/71 (101) 96 12/24/19 11:50 75 12/24/19 09:41 155/77 12/24/19 09:41 77 155/77 12/24/19 09:00 Room Air 12/24/19 08:00 74 12/24/19 08:00 97.7 77 20 155/77 (103) 96 12/24/19 04:00 72 12/24/19 04:00 98.0 74 20 158/67 (97) 95 12/24/19 00:00 77 12/24/19 00:00 97.2 80 20 152/64 (93) 95 Intake and Output 12/23/19 12/24/19 19:00 07:00 Intake Total 240 ml 140 ml Balance 240 ml 140 ml Intake Oral 240 ml 140 ml # Voids 2 Height (Feet): 5 Height (Inches): 4.00 Weight (Pounds): 140 Tiff Shaffer MD Dec 24, 2019 21:17
[2019-12-25 04:00] VITALS: BP 156/74
[2019-12-25] MEDS: NovoLOG Insulin Flexpen SUBQ SCH ×2 (06:30→11:30)
--- NOTE | 2019-12-25 07:30 | NUR ---
HAND-OFF: Report given to DIANE Beard.
--- NOTE | 2019-12-25 07:43 | NUR ---
NURSE NOTES: Received patient from Sofia Villegas. Patient is awake and alert. laying comfortably in bed. No complain of pain discomfort at this time. Left AC IV peripheral SL CDI. Right lower CYRUS drain in place scant amount serrous drainage. Fall precautions in place. Call carmona within patients reached. Will continue to monitor.
[2019-12-25 08:00] VITALS: BP_SYST 133; BP_SYST 164; BP_DIAS 67; BP_DIAS 76
--- NOTE | 2019-12-25 09:19 | Cardiac Electrophysiology PN ---
Assessment/Plan Assessment/Plan 1. Nonsustained ventricular tachycardia. The patient already ruled out for myocardial infarction. Currently, she does not have any chest pain. Echocardiogram EF 60%. On Lopressor 25 bid 2. Hypertension, better on lisinopril 20 mg daily, amlodipine 5 mg bid, Lopressor 25 bid 3. Diabetes, on insulin. 4. Acute respiratory illness, ruled out for COVID-19. 5. Citrobacter UTI. 6. History of CVA. DW RN Subjective Subjective Covid results came back negative. In SR on iv Abx for PNA. BP better with Lopressor. No further VT. Remained in SR. DC planning today Objective Last 24 Hour Vital Signs Date Time Temp Pulse Resp B/P (MAP) Pulse Ox O2 Delivery O2 Flow Rate FiO2 12/25/19 08:00 97.9 109 18 133/67 (89) 99 12/25/19 04:00 68 12/25/19 04:00 97.1 71 18 156/74 (101) 96 12/25/19 00:00 67 12/24/19 23:31 98.3 69 20 160/62 (94) 93 12/24/19 22:01 70 160/71 12/24/19 20:23 Room Air Room Air 12/24/19 20:00 99.1 70 21 160/71 (100) 93 12/24/19 20:00 73 12/24/19 17:16 86 165/70 12/24/19 16:00 75 12/24/19 16:00 98.3 86 18 165/70 (101) 96 12/24/19 12:00 98.3 76 18 162/71 (101) 96 12/24/19 11:50 75 12/24/19 09:41 155/77 12/24/19 09:41 77 155/77 Intake and Output 12/24/19 12/25/19 19:00 07:00 Intake Total 390 ml Output Total 1000 ml 505 ml Balance -610 ml -505 ml Intake Oral 390 ml Output Urine Total 1000 ml 500 ml Drainage Total 5 ml Objective HEAD AND NECK: No JVD or carotid bruits. LUNGS: Clear. CARDIOVASCULAR: Regular S1 and S2 with no gallop or murmur. ABDOMEN: Soft. EXTREMITIES: No pitting edema. Vance Laboy MD Dec 25, 2019 09:19
[2019-12-25] MEDS: Docusate 100mg cap ORAL SCH (09:49)
[2019-12-25] MEDS: Lisinopril 20mg tab ORAL SCH (09:50)
[2019-12-25] MEDS: Magnesium Oxide 400mg tab ORAL SCH (09:50)
--- NOTE | 2019-12-25 10:07 | NUR ---
*-*DISCHARGE PLANNING*-* PATIENT HAS BEEN REFERRED BACK TO; [facility] P: [phone] F: [phone]
--- NOTE | 2019-12-25 10:10 | NUR ---
NURSE NOTES: Order received from Dr. Shaffer to discharge back patient to [facility] if cleared by ID. Message left to Dr. Refugio Mckenna awaiting call back.
--- NOTE | 2019-12-25 10:29 | Pulmonology Progress Note ---
Assessment/Plan Assessment/Plan IMPRESSION: 1. Ruled out COVID-19. 2. [facility] resident. 3. Hypertension. 4. CVA. 5. Citrobacter UTI DISCUSSION: Admit to the hospital. Agree with antibiotics. I will follow as pulmonary domestic travel consultant. Continue to monitor saturations; currently on RA. COVID 19 negative Rodger Weems M.D. Subjective Interval Events: None new Constitutional: Reports: no symptoms HEENT: Repors: no symptoms Respiratory: Reports: no symptoms Cardiovascular: Reports: no symptoms Gastrointestinal/Abdominal: Reports: no symptoms Allergies: Coded Allergies: No Known Allergies (Unverified , 09/30/14) Objective Last 24 Hour Vital Signs Date Time Temp Pulse Resp B/P (MAP) Pulse Ox O2 Delivery O2 Flow Rate FiO2 12/25/19 09:50 164/76 12/25/19 09:50 70 164/76 12/25/19 09:49 70 164/76 12/25/19 08:00 96.8 70 19 164/76 (105) 96 12/25/19 08:00 69 12/25/19 04:00 68 12/25/19 04:00 97.1 71 18 156/74 (101) 96 12/25/19 00:00 67 12/24/19 23:31 98.3 69 20 160/62 (94) 93 12/24/19 22:01 70 160/71 12/24/19 20:23 Room Air Room Air 12/24/19 20:00 99.1 70 21 160/71 (100) 93 12/24/19 20:00 73 12/24/19 17:16 86 165/70 12/24/19 16:00 75 12/24/19 16:00 98.3 86 18 165/70 (101) 96 12/24/19 12:00 98.3 76 18 162/71 (101) 96 12/24/19 11:50 75 Intake and Output 12/24/19 12/25/19 19:00 07:00 Intake Total 390 ml Output Total 1000 ml 505 ml Balance -610 ml -505 ml Intake Oral 390 ml Output Urine Total 1000 ml 500 ml Drainage Total 5 ml General Appearance: no acute distress HEENT: normocephalic Respiratory/Chest: chest wall non-tender Cardiovascular: normal peripheral pulses Abdomen: normal bowel sounds Current Medications Medications (Trade) Dose Ordered Sig/Lynette Route PRN Reason Start Time Stop Time Status Last Admin Dose Admin Acetaminophen/ Hydrocodone Bitart ([place] 5/325) 1 tab Q4H PRN ORAL For Pain 12/21/19 23:15 12/28/19 23:14 Amlodipine Besylate (Norvasc) 5 mg BID ORAL 12/22/19 09:00 01/21/20 08:59 12/25/19 09:50 Cefepime HCl 1 gm/ Dextrose 55 ml @ 110 mls/hr Q24H IVPB 12/23/19 11:00 12/30/19 10:59 12/24/19 11:10 Clonidine HCl (Catapres Tab) 0.1 mg EVERY 2 HOURS PRN ORAL For High Blood Pressure 12/23/19 17:00 03/21/20 00:44 Dextrose (Dextrose 50%) 25 ml Q30M PRN IV Hypoglycemia 12/22/19 06:00 03/21/20 05:59 Dextrose (Dextrose 50%) 50 ml Q30M PRN IV Hypoglycemia 12/22/19 06:00 03/21/20 05:59 Docusate Sodium (Colace) 200 mg DAILY ORAL 12/22/19 09:00 01/21/20 08:59 12/25/19 09:49 Insulin Aspart (NovoLOG) BEFORE MEALS AND HS SUBQ 12/22/19 06:30 03/21/20 06:29 Lisinopril (PriniviL) 20 mg DAILY ORAL 12/22/19 09:00 01/21/20 08:59 12/25/19 09:50 Magnesium Oxide (Mag-Ox 400mg) 400 mg BID ORAL 12/23/19 18:00 01/22/20 17:59 12/25/19 09:50 Metoprolol Tartrate (Lopressor) 25 mg Q12HR ORAL 12/24/19 21:00 03/23/20 20:59 12/25/19 09:49 Ondansetron HCl (Zofran) 4 mg Q4H PRN ORAL Nausea & Vomiting 12/21/19 23:15 01/20/20 23:14 Rodger Weems MD Dec 25, 2019 10:29
--- NOTE | 2019-12-25 10:46 | Infectious Diseases Prog Note ---
Assessment/Plan Assessment/Plan IMPRESSION: Acute respiratory illness, rule out COVID-19. Citrobacter UTI. Hypertension History of CVA. Leukocytosis improving RECOMMENDATION: Change cefepime to Levaquin X 3 days Can be discharged to SNF Case was D/W RN & primary MD COVID-19 test: negative Subjective ROS Limited/Unobtainable: No Constitutional: Reports: no symptoms Respiratory: Reports: dry cough Gastrointestinal/Abdominal: Reports: no symptoms Genitourinary: Reports: no symptoms Allergies: Coded Allergies: No Known Allergies (Unverified , 09/30/14) Objective Vital Signs Last 24 Hour Vital Signs Date Time Temp Pulse Resp B/P (MAP) Pulse Ox O2 Delivery O2 Flow Rate FiO2 12/25/19 09:50 164/76 12/25/19 09:50 70 164/76 12/25/19 09:49 70 164/76 12/25/19 09:00 Room Air Room Air 12/25/19 08:00 96.8 70 19 164/76 (105) 96 12/25/19 08:00 69 12/25/19 04:00 68 12/25/19 04:00 97.1 71 18 156/74 (101) 96 12/25/19 00:00 67 12/24/19 23:31 98.3 69 20 160/62 (94) 93 12/24/19 22:01 70 160/71 12/24/19 20:23 Room Air Room Air 12/24/19 20:00 99.1 70 21 160/71 (100) 93 12/24/19 20:00 73 12/24/19 17:16 86 165/70 12/24/19 16:00 75 12/24/19 16:00 98.3 86 18 165/70 (101) 96 12/24/19 12:00 98.3 76 18 162/71 (101) 96 12/24/19 11:50 75 Height (Feet): 5 Height (Inches): 4.00 Weight (Pounds): 140 General Appearance: no acute distress HEENT: mucous membranes moist Respiratory/Chest: lungs clear Cardiovascular: normal rate Abdomen: normal bowel sounds, soft, non tender Extremities: no edema Neurologic/Psychiatric: alert, oriented x 3, responsive Current Medications Medications (Trade) Dose Ordered Sig/Lynette Route PRN Reason Start Time Stop Time Status Last Admin Dose Admin Acetaminophen/ Hydrocodone Bitart ([place] 5/325) 1 tab Q4H PRN ORAL For Pain 12/21/19 23:15 12/28/19 23:14 Amlodipine Besylate (Norvasc) 5 mg BID ORAL 12/22/19 09:00 01/21/20 08:59 12/25/19 09:50 Cefepime HCl 1 gm/ Dextrose 55 ml @ 110 mls/hr Q24H IVPB 12/23/19 11:00 12/30/19 10:59 12/24/19 11:10 Clonidine HCl (Catapres Tab) 0.1 mg EVERY 2 HOURS PRN ORAL For High Blood Pressure 12/23/19 17:00 03/21/20 00:44 Dextrose (Dextrose 50%) 25 ml Q30M PRN IV Hypoglycemia 12/22/19 06:00 03/21/20 05:59 Dextrose (Dextrose 50%) 50 ml Q30M PRN IV Hypoglycemia 12/22/19 06:00 03/21/20 05:59 Docusate Sodium (Colace) 200 mg DAILY ORAL 12/22/19 09:00 01/21/20 08:59 12/25/19 09:49 Insulin Aspart (NovoLOG) BEFORE MEALS AND HS SUBQ 12/22/19 06:30 03/21/20 06:29 Lisinopril (PriniviL) 20 mg DAILY ORAL 12/22/19 09:00 01/21/20 08:59 12/25/19 09:50 Magnesium Oxide (Mag-Ox 400mg) 400 mg BID ORAL 12/23/19 18:00 01/22/20 17:59 12/25/19 09:50 Metoprolol Tartrate (Lopressor) 25 mg Q12HR ORAL 12/24/19 21:00 03/23/20 20:59 12/25/19 09:49 Ondansetron HCl (Zofran) 4 mg Q4H PRN ORAL Nausea & Vomiting 12/21/19 23:15 01/20/20 23:14 Darell Mckenna MD Dec 25, 2019 10:46
[2019-12-25] MEDS ORDERED: Levofloxacin 750mg tab ORAL SCH (11:00)
--- NOTE | 2019-12-25 11:00 | NUR ---
NURSE NOTES:WOUND CARE NOTES:Pt presented on admission with Incontinence Associated dermatitis Perineum,Cleft of Buttocks and medial/posterior aspects of both upper thighs. Skin is erythematous with scattered Satellite lesions. Pt complained of tenderness to touch. Non-blanching erythema without induration/fluctuance R and L heels. Each heel non-tender when individually palpated. NO other skin breakdown noted. Tx.plan: Apply Triad Paste to buttocks and perineum with each Incontinence care. Apply Cavilon Skin Barrier to both heels. Cover each Heel with Optifoam drsg. Riggins every 7 days and prn. reposition at least every 2hours or as tolerated. Off-load heels with Pillow.
--- NOTE | 2019-12-25 11:43 | NUR ---
*-*DISCHARGE PLANNING*-* PATIENT HAS BEEN REFERRED BACK TO: [facility] P: [phone] SPOKE TO JOE, REQUESTING MORE TIME TO GO OVER PATIENT CLINICALS, AND WILL CALL BACK BY 12:30PM
[2019-12-25 12:00] VITALS: BP 143/75
--- NOTE | 2019-12-25 12:12 | NUR ---
*-*DISCHARGE PLANNING*-* PATIENT HAS BEEN REFERRED BACK TO: [facility] P: [phone] SPOKE TO JOE, THEY ARE UNABLE TO ACCEPT THE PATIENT.
--- NOTE | 2019-12-25 12:17 | NUR ---
*-*DISCHARGE PLANNING*-* PATIENT HAS BEEN REFERRED TO: [facility] P: [phone] F: [phone] ~~~~~~~~~~~~~WATING FOR ACCEPTANCE~~~~~~~~~~~~~~~~~~~
[2019-12-25] MEDS ORDERED: LEVAQUIN750 MG ORAL (13:49)
--- NOTE | 2019-12-25 14:03 | NUR ---
*-*DISCHARGE PLANNED*-* PATIENT HAS BEEN ACCEPTED AND WILL BE DISCHARGE TO: [facility] P: [phone] ROOM#11 [facility] SET FOR 3PM [employer] SPOKE WITH MALATHI Moreno
--- NOTE | 2019-12-25 15:25 | NUR ---
NURSE NOTES: Patient discharge to [facility] as per Dr. Shaffer order. Report given to nurse Arabella. Patient with stable vital signs. picked up ambulance with 2 EMS attendants. ID bank, cardiac monito
--- NOTE | 2019-12-25 15:28 | NUR ---
NURSE NOTES: Patient discharge to [facility] as per Dr. Shaffer order. Report given to nurse Arabella. Patient with stable vital signs. picked up by ambulance with 2 EMS attendants. ID bands, veterinarian helper and IV removed from patient. all belongings taken with patient.
--- NOTE | 2019-12-25 17:48 | NUR ---
NURSE NOTES: wound pictures taken upon discharge. Unable to upload
--- NOTE | 2019-12-26 09:15 | Discharge Summary ---
Discharge Summary Discharge Summary _ DATE OF ADMISSION: 12/21/2019 DATE OF DISCHARGE: 12/25/2019 DISCHARGED BY: Dr. Shaffer REASON FOR ADMISSION: 74 years old female with past medical history of hypertension, history of CVA, [facility], presented for evaluation due to low-grade fever and cough. Symptoms were present for 1 day. Patient reported fatigue, chest congestion and mild sore throat. She denied any difficulty swallowing. There were documented cases of COVID 19 infection at her facility. Patient was sent by primary care provider for evaluation. Patient denied shortness of breath. Patient denied chest pain. Upon evaluation patient had leukocytosis WBC 16.4, stable hemoglobin, hematocrit and platelet count. Low lymphocytes 5.7% . Lactic acid 0.9. Urinalysis revealed +3 leukocyte esterase, pyuria and few bacteria. Chemistry unremarkable. Troponin 0.01. pro BNP 671. EKG revealed sinus rhythm , no acute ischemic changes. Chest x-ray demonstrated no acute cardiopulmonary pathology. Patient was admitted with suspected COVID 19 infection , respiratory illness with fever and UTI. CONSULTANTS: supervisor boat outfitting Dr. Anand pulmonary Dr. Weems ID specialist Dr. Mckenna [facility]SE: Patient admitted to telemetry floor. Patient started on empiric antibiotics. Influenza screen was negative. Blood cultures were negative. COVID 19 was not detected. Urine culture revealed Citrobacter. Antibiotic provided as per ID specialist recommendation. Supplemental oxygen provided and titrated to keep oximetry above 92%. Bronchodilator treatment provided as needed. Leukocytosis trending down, no further fevers. IV antibiotic changed to oral to complete the course at the facility as per ID specialist recommendation. Patient demonstrated evidence of nonsustained ventricular tachycardia. Echocardiogram demonstrated preserved ejection fraction of 60% with mild left ventricular hypertrophy. No evidence of pericardial effusion. No evidence of wall motion abnormality. Right ventricular systolic pressure of 52 consistent with moderate pulmonary hypertension. Repeated troponin was negative as well. EKG revealed sinus rhythm, no acute ischemic changes. Patient was ruled out for acute myocardial infarction. Blood pressure was managed with ADIA inhibitor, calcium channel flavio and beta- flavio. Patient denied chest pain. Leukocytosis trending down. Pulse oximetry stable on room air. Patient clinically stabilized and was [facility] to [facility] of care. FINAL DIAGNOSES: Suspected 2019 novel coronavirus infection -ruled out Citrobacter UTI Acute respiratory illness with fever-resolved Hypertension Nonsustained ventricular tachycardia History of CVA DISCHARGE MEDICATIONS: See Medication Reconciliation list. DISCHARGE INSTRUCTIONS: [facility]. Follow up with medical doctor at the facility. I have been assigned to dictate discharge summary for this account. I was not involved in the patient's management. Erika Quiroz SECURITY PROGRAM MANAGER Dec 26, 2019 09:15
== END 2019-12-25 15:17 | DRG 153 ==
LOC: EDBD 11:03 → EMR 11:50 → 2E 11:53 → EDBEDREQ 20:03 → 2E 23:54
DX: J06.9 Acute upper respiratory infection, unspecified (principal); N39.0 Urinary tract infection, site not specified; I47.2 Ventricular tachycardia; I10 Essential (primary) hypertension; K21.9 Gastro-esophageal reflux disease without esophagitis; Z86.73 Personal history of transient ischemic attack (TIA), and cerebral infarction without residual deficits; E78.5 Hyperlipidemia, unspecified; I25.10 Atherosclerotic heart disease of native coronary artery without angina pectoris; Z79.02 Long term (current) use of antithrombotics/antiplatelets; B96.89 Other specified bacterial agents as the cause of diseases classified elsewhere; E11.9 Type 2 diabetes mellitus without complications; Z79.4 Long term (current) use of insulin
CPT/HCPCS: 36415; 71045; 80053; 81003; 82248; 82550; 82553; 83605; 83735; 83880; 84484; 85025; 86710; 87040; 87086; 87181; 87635; 93005; 93306; 96361; 96365; 99285; J1815; J7030